=== PATIENT | male | born 1955 | race Caucasian/White ===

== ENCOUNTER 2020-10-08 19:16 | Inpatient (IN) | payer BC ==
[~2020-10-08] VITALS: Ht 180.3 cm; Wt 77.1 kg
[2020-10-08] MEDS ORDERED: IV NORMAL SALINE 1000 ML BAG IV ONE (20:00)
[2020-10-08] MEDS ORDERED: PANTOPRAZOLE SODIUM 40 MG VIAL IV ONE (20:00)
[2020-10-08] MEDS ORDERED: ONDANSETRON 4 MG/2 ML VIAL IV ONE (20:00)
[2020-10-08] MEDS ORDERED: MORPHINE SULFATE 2 MG/1 ML DISP.SYRIN IV ONE (20:00)
[2020-10-08] MEDS ORDERED: ONDANSETRON 4 MG/2 ML VIAL ONE (20:15)
[2020-10-08] MEDS ORDERED: PANTOPRAZOLE SODIUM 40 MG VIAL ONE (20:15)
[2020-10-08] MEDS ORDERED: MORPHINE SULFATE 4 MG/1 ML DISP.SYRIN ONE (20:15)
[2020-10-08 20:25] LABS: BASOPHILS % (AUTO) 0.2 % (0.0-2.0); HEMATOCRIT 42.3 % (36.7-47.1); HEMOGLOBIN 14.8 g/dL (12.5-16.3); LYMPHOCYTES # (AUTO) 0.3 K/uL (20.0-40.0); LYMPHOCYTES % (AUTO) 3.5 % (20.5-51.5); MEAN CORPUSCULAR HEMOGLOBIN 30.8 uug (23.8-33.4); MEAN CORPUSCULAR HGB CONC 35 g/dL (32.5-36.3); MEAN CORPUSCULAR VOLUME 88.1 fL (73.0-96.2); MONOCYTES # (AUTO) 0.5 K/uL (2.0-10.0); MONOCYTES % (AUTO) 5.5 % (0.0-11.0); NEUTROPHILS # (AUTO) 8.5 K/uL (1.8-8.9); NEUTROPHILS % (AUTO) 90.8 % (38.5-71.5); PLATELET COUNT (AUTO) 210 K/uL (152-348); WHITE BLOOD COUNT (AUTO) 9.3 K/uL (3.6-10.2)
[2020-10-08 20:57] LABS: CREATININE 1.1 mg/dL (0.6-1.3); POTASSIUM 3.7 mmol/L (3.5-5.1)
[2020-10-08] MEDS ORDERED: diphenhydrAMINE 50 MG/1 ML VIAL IV ONE (21:00)
--- NOTE | 2020-10-08 21:00 | NUR ---
Patient c/o hiccup for 1hr now. Dr Sutherland made aware.
[2020-10-08 21:03] LABS: BILIRUBIN,DIRECT 0.3 mg/dL (0.0-0.2); BILIRUBIN,TOTAL 1.1 mg/dL (0.2-1.0); TOTAL PROTEIN, SERUM 8.6 g/dL (6.4-8.2)
[2020-10-08] MEDS ORDERED: diphenhydrAMINE 50 MG/1 ML VIAL ONE (21:05)
[2020-10-08] MEDS ORDERED: METOCLOPRAMIDE HCL 10 MG/2 ML VIAL IV ONE (21:30)
[2020-10-08] MEDS ORDERED: METOCLOPRAMIDE HCL 10 MG/2 ML VIAL ONE (21:34)
[2020-10-08 21:41] LABS: *BILIRUBIN,URIN 1+ (NEGATIVE); *BLOOD, URINE NEGATIVE (NEGATIVE); *CLARITY,URINE CLEAR (CLEAR); *COLOR,URINE DARK YELLOW (YELLOW); *KETONES,URINE 4+ (NEGATIVE); LEUKOCYTE ESTERASE ,URINE NEGATIVE (NEGATIVE); NITRITE, URINE NEGATIVE (NEGATIVE); UGLUCOSE NEGATIVE (NEGATIVE)
[2020-10-08] MEDS ORDERED: HYDROMORPHONE 1 MG/1 ML DISP.SYRIN IV ONE (22:00)
[2020-10-08] MEDS ORDERED: HYDROMORPHONE 1 MG/1 ML DISP.SYRIN ONE (22:17)
--- NOTE | 2020-10-08 23:00 | NUR ---
Patient states hiccup is gone. No distress noted.
[2020-10-09] MEDS ORDERED: Z GUARD REMEDY PASTE 57 GM TUBE TOP PRN (00:45)
[2020-10-09] MEDS ORDERED: ACETAMINOPHEN 325 MG TABLET PO PRN (00:45)
[2020-10-09] MEDS ORDERED: MAGNESIUM HYDROXIDE 30 ML LIQUID UDC PO PRN (00:45)
[2020-10-09] MEDS ORDERED: HYDROMORPHONE 1 MG/1 ML DISP.SYRIN IV ONE (01:00)
--- NOTE | 2020-10-09 01:00 | NUR ---
Accepted by Dr Myers [facility] panel patient companion.
[2020-10-09 01:11] LABS: BILIRUBIN,DIRECT 1.8 mg/dL (0.0-0.2); BILIRUBIN,TOTAL 2.7 mg/dL (0.2-1.0); TOTAL PROTEIN, SERUM 6.8 g/dL (6.4-8.2)
[2020-10-09] MEDS ORDERED: levoFLOXacin 750 MG/D5W 150 ML PIGGYBACK IV ONE (03:30)
[2020-10-09] MEDS ORDERED: METRONIDAZOLE 500 MG/NS 100 ML PIGGYBACK IV ONE (03:30)
[2020-10-09] MEDS ORDERED: levoFLOXacin 750MG/D5W 150 ML IV ONE (03:34)
[2020-10-09] MEDS ORDERED: METRONIDAZOLE 500 MG/NS 100ML 100 ML IV ONE (03:34)
[2020-10-09] MEDS ORDERED: LISI10TA5 PO (03:38)
--- NOTE | 2020-10-09 04:39 | NUR ---
Patient out of unit for ct Hida scan via wheelchair.
--- NOTE | 2020-10-09 05:58 | NUR ---
Patient back from Hida scan with no distress noted.
--- NOTE | 2020-10-09 06:05 | NUR ---
Transfered to 3rd floor via gurny with no distress noted.
--- NOTE | 2020-10-09 07:45 | NUR ---
Received PT in bed, awake AO X 4. All information given during shift report. PT is cooperative and pleasant. Safety measures provided, call light within reach, bed low and lock. Will follow up with Pharmacy about reconciling meds. PT is NPO. Hydra scan scheduled for today. Will continue to monitor.
[2020-10-09 08:42] VITALS: BP 114/59
[2020-10-09] MEDS: IV NS 1000 ML 1,000 ML IV PRN (10:08)
--- NOTE | 2020-10-09 12:30 | NUR ---
Hydra scan completed. Kerzuma aware. Surgery eval requested. Called Dr. Kruse as courtesy and made aware of eval. MRI scheduled at [facility] for 1400. Transportation scheduled. PT aware. PT complain of pain. Received order from Adriana INSTRUMENT TECHNICIAN APPRENTICE for Toradol 15 mg IVP Q6. Administered medication per INSTRUMENT TECHNICIAN APPRENTICE's order. will continue to monitor. Safety measures provided, call light within reach, bed low and lock.
[2020-10-09] MEDS: KETOROLAC TROMETHAMINE 15 MG INJ IVP PRN ×2 (13:08→18:46)
--- NOTE | 2020-10-09 15:30 | NUR ---
PT left via ambulance for MRI at [facility]. provided report to QUE Morales. PT left on [facility].
[2020-10-09 15:35] VITALS: BP 98/48
--- NOTE | 2020-10-09 17:15 | NUR ---
PT came back from MRI via ambulance. Received report from QUE Morales. PT back in bed with safety measures provided. Call light within reach.
--- NOTE | 2020-10-09 18:30 | NUR ---
PT in bed, complaining of pain. Will administer pain medication per order. Safety measure provided, call light within reach, bed low and lock.
[2020-10-09 20:03] VITALS: BP 95/57
[2020-10-09] MEDS: MORPHINE SULFATE 2 MG/1 ML DISP.SYRIN IV PRN (22:55)
--- NOTE | 2020-10-10 03:49 | NUR ---
Admitted a 65 yr old male admitted for cholecystitis. On pain management. Medicated with Morphine as ordered.Tolerated well. No ill effects noted. NPO maintained. IVF's infusing well. Will monitor patient. Voiding freely.
[2020-10-10] MEDS: IV NS 1000 ML 1,000 ML IV PRN (03:59)
[2020-10-10 04:00] VITALS: BP 105/51
[2020-10-10] MEDS: MORPHINE SULFATE 2 MG/1 ML DISP.SYRIN IV PRN ×3 (04:15→18:26)
--- NOTE | 2020-10-10 06:25 | NUR ---
End of shift notes: Slept well most of the shift. IVF's infusing well. All needs attended and met. Medicated with Morphine 2mg IV given as needed for pain. Relief noted. Will monitor patient. Kept comfortable.
[2020-10-10 09:08] LABS: EOSINOPHILS # (AUTO) 0.1 K/uL (0.0-0.7); EOSINOPHILS % (AUTO) 0.5 % (0.0-7.0); HEMATOCRIT 34.6 % (36.7-47.1); HEMOGLOBIN 11.8 g/dL (12.5-16.3); LYMPHOCYTES # (AUTO) 0.3 K/uL (20.0-40.0); LYMPHOCYTES % (AUTO) 1.8 % (20.5-51.5); MEAN CORPUSCULAR HEMOGLOBIN 30.5 uug (23.8-33.4); MEAN CORPUSCULAR HGB CONC 34 g/dL (32.5-36.3); MEAN CORPUSCULAR VOLUME 89.6 fL (73.0-96.2); MONOCYTES # (AUTO) 0.6 K/uL (2.0-10.0); MONOCYTES % (AUTO) 3.6 % (0.0-11.0); NEUTROPHILS # (AUTO) 14.6 K/uL (1.8-8.9); NEUTROPHILS % (AUTO) 94.1 % (38.5-71.5); PLATELET COUNT (AUTO) 88 K/uL (152-348); RED BLOOD CELL COUNT(AUTO) 3.87 MIL/uL (4.06-5.63); WHITE BLOOD COUNT (AUTO) 15.5 K/uL (3.6-10.2)
[2020-10-10 09:20] LABS: BILIRUBIN,DIRECT 5.3 mg/dL (0.0-0.2); BILIRUBIN,TOTAL 6.2 mg/dL (0.2-1.0); CREATININE 1.4 mg/dL (0.6-1.3); MAGNESIUM 1.7 mg/dL (1.8-2.4); POTASSIUM 3.3 mmol/L (3.5-5.1); TOTAL PROTEIN, SERUM 5.9 g/dL (6.4-8.2)
--- NOTE | 2020-10-10 09:35 | NUR ---
lab reported lab result of blood sugar is 40, rechecked 72. patient is verbally responsive, alert x3, awake, reported to dr Duque with new order, noted.
[2020-10-10] MEDS ORDERED: DEXTROSE IV ONE (09:45)
[2020-10-10] MEDS ORDERED: POTASSIUM CHLORIDE IV ONE (09:45)
[2020-10-10] MEDS: IV D5/ 0.9% NACL 1,000 ML IV PRN ×2 (10:05→23:08)
[2020-10-10] MEDS: ONDANSETRON 4 MG/2 ML VIAL IV PRN (10:15)
[2020-10-10] MEDS: POTASSIUM CHLORIDE 50 ML IV SCH ×2 (10:16→11:45)
[2020-10-10 11:38] VITALS: BP 135/65
[2020-10-10] MEDS ORDERED: MORPHINE SULFATE 2 MG/1 ML DISP.SYRIN IV ONE (12:00)
[2020-10-10] MEDS ORDERED: MAGNESIUM SULFATE/D5W 100 ML IV SCH (13:00)
[2020-10-10] MEDS ORDERED: POTASSIUM CHLORIDE 10 MEQ, LIDOCAINE-MPF 1% 1 ML in IV DEXTROSE 5% 100 ML IV SCH (13:00)
[2020-10-10] MEDS: levoFLOXacin 750MG/D5W 750 MG in PREMIXED 1 EACH IV SCH ×2 (14:40→15:14)
[2020-10-10] MEDS: METRONIDAZOLE 500 MG/NS 100ML 500 MG in PREMIXED 1 EACH IV SCH ×2 (14:47→21:16)
[2020-10-10 14:51] LABS: *MONOTEST NEGATIVE (NEGATIVE)
[2020-10-10] MEDS ORDERED: SODIUM PHOSPHATE MM 15 MMOL in IV NORMAL SALINE 250 ML IV ONE (15:00)
[2020-10-10 15:17] VITALS: BP 155/65
--- NOTE | 2020-10-10 17:26 | NUR ---
abdominal pain is managed with pain medication, patient is ambulatory, alert, oriented x4, no sob, resp even nonlabored, skin warm and dry to touch, no chills, no fever noted, IV meds administered as ordered, continue to monitor
[2020-10-10] MEDS ORDERED: SWABABLE VALVE TRANSFER SET EA MC ONE (19:25)
[2020-10-10] MEDS ORDERED: IOHEXOL 300MG/ML 100 ML INFUS..BTL ONE (19:25)
[2020-10-10] MEDS ORDERED: IV NORMAL SALINE 250 ML IV ONE (19:25)
[2020-10-10] MEDS ORDERED: HYDROMORPHONE 2 MG/1 ML DISP.SYRIN IV ONE (19:30)
[2020-10-10 20:00] VITALS: BP 142/63
--- NOTE | 2020-10-10 22:41 | NUR ---
[id number] ambulatory ad emerald. VSS no acute distress noted. Admitted for cholecystitis. On pain management. Seen by Dr Silva(GI) this pm. Patient went for CT scan of abdomen/pelvis. Dilaudid 0.5mg IV given prior to CT scan. No distress noted. Will monitor patient. IVF's infusing well. NPO status maintained. Attended to needs. VSS.
[2020-10-11] MEDS: MORPHINE SULFATE 2 MG/1 ML DISP.SYRIN IV PRN ×2 (02:48→13:45)
[2020-10-11 04:03] VITALS: BP 146/72
[2020-10-11] MEDS: METRONIDAZOLE 500 MG/NS 100ML 500 MG in PREMIXED 1 EACH IV SCH ×3 (05:21→21:06)
[2020-10-11] MEDS: IV D5/ 0.9% NACL 1,000 ML IV PRN ×3 (05:30→22:13)
[2020-10-11] MEDS: ONDANSETRON 4 MG/2 ML VIAL IV PRN ×2 (06:00→14:16)
[2020-10-11 06:10] LABS: BASOPHILS % (AUTO) 0.3 % (0.0-2.0); EOSINOPHILS # (AUTO) 0.1 K/uL (0.0-0.7); LYMPHOCYTES # (AUTO) 0.2 K/uL (20.0-40.0); LYMPHOCYTES % (AUTO) 1.7 % (20.5-51.5); MEAN CORPUSCULAR HEMOGLOBIN 30.1 uug (23.8-33.4); MEAN CORPUSCULAR HGB CONC 34 g/dL (32.5-36.3); MEAN CORPUSCULAR VOLUME 87.9 fL (73.0-96.2); MONOCYTES # (AUTO) 0.4 K/uL (2.0-10.0); MONOCYTES % (AUTO) 3.7 % (0.0-11.0); NEUTROPHILS # (AUTO) 10.5 K/uL (1.8-8.9); NEUTROPHILS % (AUTO) 93.3 % (38.5-71.5); PLATELET COUNT (AUTO) 88 K/uL (152-348); RED BLOOD CELL COUNT(AUTO) 3.99 MIL/uL (4.06-5.63); WHITE BLOOD COUNT (AUTO) 11.2 K/uL (3.6-10.2)
[2020-10-11 06:34] LABS: BILIRUBIN,DIRECT 6.7 mg/dL (0.0-0.2); BILIRUBIN,TOTAL 7.4 mg/dL (0.2-1.0); CREATININE 1.1 mg/dL (0.6-1.3); MAGNESIUM 2.3 mg/dL (1.8-2.4); PHOSPHOROUS 1.6 mg/dL (2.5-4.9); POTASSIUM 3.4 mmol/L (3.5-5.1); TOTAL PROTEIN, SERUM 5.9 g/dL (6.4-8.2)
--- NOTE | 2020-10-11 06:42 | NUR ---
End of shift report. Quiet night. Needs attended. Medicated with Morphine 4mg as needed for pain. [place] nauseaous this am, Zofran 4mg IV given as needed. VSS.
[2020-10-11] MEDS ORDERED: POTASSIUM PHOSPHATE MM 15 MMOL in IV NORMAL SALINE 250 ML IV ONE (09:00)
[2020-10-11 10:06] LABS: *EBV AB VCA IGM <36.0 U/mL (0.0-35.9)
[2020-10-11] MEDS: POTASSIUM PHOSPHATE MM 7.5 MMOL in IV NORMAL SALINE 97.5 ML IV SCH ×2 (10:20→15:23)
[2020-10-11 11:13] VITALS: BP 160/72
[2020-10-11] MEDS: levoFLOXacin 750MG/D5W 750 MG in PREMIXED 1 EACH IV SCH (13:06)
[2020-10-11 13:29] LABS: BAND % (MANUAL) 1 % (0-10); NEUTROPHILS % (MANUAL) 95 % (42-75)
[2020-10-11 13:30] LABS: LYMPHOCYTES % (MANUAL) 1 % (20-40); MONOCYTES % (MANUAL) 3 % (2-10)
[2020-10-11 15:16] VITALS: BP 124/70
[2020-10-11 20:07] VITALS: BP 146/57
[2020-10-11] MEDS: HYDROCODONE/APAP 5-325MG TABLET PO PRN (20:21)
[2020-10-12 04:39] VITALS: BP 131/64
[2020-10-12] MEDS: METRONIDAZOLE 500 MG/NS 100ML 500 MG in PREMIXED 1 EACH IV SCH (05:06)
[2020-10-12] MEDS ORDERED: MORPHINE SULFATE 4 MG/1 ML DISP.SYRIN IV PRN (08:00)
[2020-10-12 08:26] LABS: BASOPHILS % (AUTO) 0.3 % (0.0-2.0); EOSINOPHILS # (AUTO) 0.1 K/uL (0.0-0.7); EOSINOPHILS % (AUTO) 2.1 % (0.0-7.0); HEMATOCRIT 31.9 % (36.7-47.1); HEMOGLOBIN 11.2 g/dL (12.5-16.3); LYMPHOCYTES # (AUTO) 0.3 K/uL (20.0-40.0); LYMPHOCYTES % (AUTO) 4.7 % (20.5-51.5); MEAN CORPUSCULAR HEMOGLOBIN 30.8 uug (23.8-33.4); MEAN CORPUSCULAR HGB CONC 35 g/dL (32.5-36.3); MONOCYTES # (AUTO) 0.5 K/uL (2.0-10.0); MONOCYTES % (AUTO) 8.3 % (0.0-11.0); NEUTROPHILS # (AUTO) 5.6 K/uL (1.8-8.9); NEUTROPHILS % (AUTO) 84.6 % (38.5-71.5); PLATELET COUNT (AUTO) 80 K/uL (152-348); RED BLOOD CELL COUNT(AUTO) 3.63 MIL/uL (4.06-5.63); WHITE BLOOD COUNT (AUTO) 6.6 K/uL (3.6-10.2)
[2020-10-12 08:48] LABS: BILIRUBIN,DIRECT 4.3 mg/dL (0.0-0.2); BILIRUBIN,TOTAL 4.8 mg/dL (0.2-1.0); CREATININE 1.1 mg/dL (0.6-1.3); MAGNESIUM 2.2 mg/dL (1.8-2.4); PHOSPHOROUS 1.6 mg/dL (2.5-4.9); POTASSIUM 3.4 mmol/L (3.5-5.1); TOTAL PROTEIN, SERUM 5.4 g/dL (6.4-8.2)
[2020-10-12] MEDS ORDERED: NEUTRA PHOS PACKET PO ONE (09:30)
[2020-10-12] MEDS ORDERED: POTASSIUM CHLORIDE 20 MEQ TAB.PRT.SR PO ONE (09:30)
[2020-10-12] MEDS: HYDROCODONE/APAP 5-325MG TABLET PO PRN ×2 (10:41→13:54)
[2020-10-12 12:00] VITALS: BP 158/80
[2020-10-12] MEDS ORDERED: levoFLOXacin 750 MG TABLET PO SCH (13:00)
[2020-10-12] MEDS ORDERED: CALCIUM CARBONATE 500 MG TAB.CHEW PO PRN (13:45)
[2020-10-12] MEDS: ONDANSETRON 4 MG/2 ML VIAL IV PRN (13:53)
[2020-10-12] MEDS ORDERED: METRONIDAZOLE 500 MG TABLET PO SCH (14:00)
[2020-10-12] MEDS ORDERED: HYDROCODONE/APAP 5-325MG TABLET PO ONE (14:25)
[2020-10-12 16:00] VITALS: BP 150/85
[2020-10-12 16:10] LABS: *ANTI-SCLERODERMA-70 AB <0.2 AI (0.0-0.9); *SJOGREN'S ANTI-SS-A <0.2 AI (0.0-0.9); *SJOGREN'S ANTI-SS-B <0.2 AI (0.0-0.9); *SMITH ANTIBODIES <0.2 AI (0.0-0.9); ANTI-DNA(DS) AB, QN <1 IU/mL (0-9)
--- NOTE | 2020-10-12 16:45 | NUR ---
DISCHARGED VIA W/C, ACCOMPANIED BY ZULY GARCIA TO IN AUTO. NO C/O DISCOMFORT.
== END 2020-10-12 16:50 | disposition home or self-care (01) | DRG 444 ==
LOC: ER 19:16 → MEDSURG3 10-09 06:05
PROVIDERS: ADMIT Student in an Organized Health Care Education/Training Program; ATTEND Student in an Organized Health Care Education/Training Program
DX: K83.1 Obstruction of bile duct (principal); N17.0 Acute kidney failure with tubular necrosis; E87.1 Hypo-osmolality and hyponatremia; E44.0 Moderate protein-calorie malnutrition; J98.11 Atelectasis; E87.2 Acidosis; Z88.0 Allergy status to penicillin; E83.39 Other disorders of phosphorus metabolism; I10 Essential (primary) hypertension; E86.1 Hypovolemia; E87.6 Hypokalemia; K82.8 Other specified diseases of gallbladder; K44.9 Diaphragmatic hernia without obstruction or gangrene; D72.829 Elevated white blood cell count, unspecified; K57.90 Diverticulosis of intestine, part unspecified, without perforation or abscess without bleeding; E80.6 Other disorders of bilirubin metabolism; Z68.23 Body mass index [BMI] 23.0-23.9, adult
CPT/HCPCS: 36415; 70030-TC; 71045; 74181; 78445; 83690; 83735; 84100; 85025; 85610; 86038; 86308; 86704; 86705; 86708; 86709; 86803; 87340; 93005; A4663; A9537; C9113; G0378; J1170; J1200; J1885; J1956; J2001; J2270; J2405; J2765; J3475; J3480; J3490; J7030; J7042; J7050; J7060; Q9967